=== PATIENT | female | born 1940 | race Caucasian/White ===

== ENCOUNTER → 2016-10-02 | Outpatient (CLI) | payer MEDICARE ==
--- NOTE | 2016-10-02 13:15 | DI ---
Indication: ITS.REASON: N93.0 RECURRENT UTI, M54.9 BACK PAIN Procedure: CT RENAL W/O CONTRAST: Encounter: Initial Comparison: None Technique: Axial CT images were performed through the abdomen and pelvis without intravenous contrast. Coronal and sagittal reformatted images were also obtained. Automated Exposure Control and Iterative Reconstruction dose reducing techniques were utilized. Findings: Evaluation for urinary tract pathology nonrelated to stones is limited without intravenous contrast. Lower chest: The visualized lower lungs are well-aerated without focal airspace disease seen. The visualized heart is normal in size without pericardial effusion. Coronary arterial and thoracic aortic atherosclerotic calcifications. Abdomen: The noncontrast liver is homogeneous in attenuation. The gallbladder is distended and appears normal. No biliary ductal dilatation. The noncontrast pancreas is homogeneous in attenuation. The spleen is normal in size and attenuation. The adrenal glands are within normal limits. 4.5 cm right renal cyst. Partially calcified subcentimeter lesion arising from the superior pole of the left kidney. The noncontrast kidneys appear grossly normal. The ureters are normal in course and caliber. The abdominal aorta is normal in course and caliber with aortoiliac atherosclerotic calcifications noted. The stomach is partially distended and appears grossly normal. Small bowel loops are normal in caliber without evidence of obstruction. Mild colonic diverticulosis without associated inflammatory changes to suggest acute diverticulitis. The appendix is normal. No intra-abdominal free air, free fluid, focal fluid collections, or lymphadenopathy. Pelvis: The bladder is distended and appears normal. The uterus appears grossly normal. No adnexal masses. No pelvic free fluid or lymphadenopathy. Calcified pelvic phleboliths. Osseous structures and soft tissues: No acute osseous abnormality identified. 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 Impression: 1. No renal or ureteral stones, hydroureteronephrosis, or other evidence of obstructive uropathy. 2. Subcentimeter partially calcified lesion arising from the superior pole of the left kidney, potentially a partially calcified cyst, however renal ultrasound or contrast-enhanced CT could be obtained for further characterization. 3. Larger 4.5 cm however simple/fluid attenuation right renal cyst noted. 4. Mild colonic diverticulosis without imaging evidence of acute diverticulitis. 5. Coronary arterial and aortoiliac atherosclerotic disease. 6. 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 .
== END ==
LOC: IMA 12:18
PROVIDERS: ATTEND Specialist
DX: N39.0 Urinary tract infection, site not specified (principal); N28.1 Cyst of kidney, acquired; N28.89 Other specified disorders of kidney and ureter; K57.30 Diverticulosis of large intestine without perforation or abscess without bleeding; I25.10 Atherosclerotic heart disease of native coronary artery without angina pectoris; I70.0 Atherosclerosis of aorta; M41.9 Scoliosis, unspecified; M47.896 Other spondylosis, lumbar region; M54.9 Dorsalgia, unspecified